=== PATIENT | male | born 1980 | race African-American/Black ===

== ENCOUNTER 2017-07-28 09:40 | Emergency (ER) | payer SELFPAY ==
[2017-07-28 10:05] VITALS: BP 131/77
--- NOTE | 2017-07-28 10:14 | ERNOTE ---
Back Pain ER HPI Date of Service: 07/28/17 Presenting Symptoms: hx chronic back pain Time Seen by Provider: 07/28/17 10:13 Source: patient, RN notes reviewed Exam Limitations: no limitations Immunizations: IMMUNIZATION HX Immunizations Up to Date Yes History of Influenza Vaccine No Hx Pneumococcal Vaccination No Allergies/Adverse Reactions: Allergies No Known Allergies Allergy (Unverified 07/28/17 10:05) Home Medications: HOME MEDICATIONS Cyclobenzaprine HCl [Flexeril] 10 mg PO TID PRN #30 tab 07/28/17 [Last Taken Unknown] Ibuprofen [Motrin] 600 mg PO Q6H PRN #40 tab 07/28/17 [Last Taken Unknown] Narrative: 37 year old male ambulatory to the ED for pain in his right hip and thigh that began gradually over the past few days. He has a history of chronic low back pain. He was seen in the ED in [place] last weekend and prescribed nabumetone and a steroid. He reports that the steroid did help his back pain a little. He also reports that an xray was done and was normal. He has not been seen here before and does not have a PCP. Timing: Reports: constant, getting worse Quality/Severity: Reports: severe, aching Location of pain: Reports: lower back, radiating to rt thigh/leg Recent Injury?: Reports: no Modifying Factors - (Improves): Reports: nothing Modifying Factors - (Worsens): Reports: supine position, cough/deep breaths Associated Symptoms: Denies: fever/chills, sweating, constipation/incontinence, nausea/vomiting, problems urinating, difficulty walking, lightheadedness, numbess/weakness in legs Prior Treament: Reports: recently seen, treated by physician, similar symptoms before Review of Systems - Review of Systems Constitutional: Absent: recent illness, fever, malaise EYE: Present: no symptoms reported ENT: Present: no symptoms reported Respiratory: Absent: shortness of breath, cough Cardiology: Absent: chest pain, palpitations, edema Gastrointestinal/Abdominal: Absent: nausea, vomiting, abdominal pain Genitourinary: Absent: dysuria, hematuria Musculoskeletal: Present: back pain. Absent: neck pain, joint pain, joint swelling Skin: Absent: rash, lesions, lumps Neurological: Absent: headache, dizziness/light-headedness, weakness, numbness, tingling Endocrine: Present: no symptoms reported Hematologic/Lymphatic: Absent: easy bruising, easy bleeding Psych: Present: anxiety, depressed - Patient's Past Medical History Patient History - Medical: Anxiety, Chronic Pain, Depression Patient History - Cardiac/Respiratory: CVA/Stroke Patient History - Cancer: No Hx of Cancer Patient History - Surgical Procedures: No surgical history Patient History - Other: None - Social History Living Situations: spouse Abuse History: No History of abuse Psych History: Hx of Anxiety, Hx of Depression Smoking Status: Current every day smoker Have you smoked in the past 12 months: Yes Do you dip or chew tobacco: No Alcohol Use: occasionally Drug Use: marijuana - Immunizations Immunizations Up to Date: Yes Hx Pneumococcal Vaccination: No History of Influenza Vaccine: No Physical Exam - Physical Exam General Appearance: Present: wd/wn, alert, no apparent distress Head Exam: Present: normal inspection Neck: Present: normal inspection, nontender, supple, full range of motion Respiratory: Present: no respiratory distress, normal breath sounds, no accessory muscle use, lungs clear Cardiovascular/Chest: Present: regular rate, rhythm, no murmur Back Exam: Present: no CVA tenderness, no vertebral tenderness, decreased range of motion - mild, lumbar region, other - bilateral lumbar region paraspinal muscle tenderness, worse on right Extremity Exam: Present: normal inspection, non-tender, normal range of motion, no edema Neurological Exam: Present: alert, oriented, normal mood/affect, no motor/ sensory deficits DTR: N=norm/NB=norm/brisk/A=abs/DD=dull/dimin/HC=hyperactive: Knee (R): Normal/ Brisk, Knee (L): Normal/Brisk Skin Exam: Present: normal color, warm/dry ED Progress - Vital Signs Patient's Vital Signs:: I have reviewed the patient's vital signs. Vital Signs: Vital Signs 07/28/17 09:58 Pulse Rate 73 Respiratory 15 Rate Blood Pressure 131/77 O2 Sat by Pulse 100 Oximetry - Progress/Reassessment Chief Complaint: Lower Extremity Pain/ Injury Progress:: Unchanged Departure Clinical Impression: Chronic low back pain Qualifiers: Back pain laterality: right Sciatica presence: with sciatica Sciatica laterality: sciatica of right side Qualified Code(s): M54.41 - Lumbago with sciatica, right side; G89.29 - Other chronic pain; G89.29 - Other chronic pain - Departure Disposition: Home Follow Up Needed Condition: Stable Instructions: Sciatica, [id number] Additional Instructions: Stop nabumetone but continue steroid Take ibuprofen with food Muscle relaxant will cause drowsiness Contact the clinic to establish with a primary care provider for further testing and treatment [phone] Prescriptions: Cyclobenzaprine HCl [Flexeril] 10 mg PO TID PRN #30 tab PRN Reason: MUSCLE SPASMS Ibuprofen [Motrin] 600 mg PO Q6H PRN #40 tab PRN Reason: Pain
[2017-07-28] MEDS ORDERED: KETOROLAC TROMETHAMINE 60 MG/2 ML VIAL IM ONE ×2 (10:30→10:33)
[2017-07-28] MEDS ORDERED: ORPHENADRINE CITRATE 30 MG/ML VIAL IM ONE (10:31)
[2017-07-28] MEDS ORDERED: ORPHENADRINE CITRATE 30 MG/ML VIAL ONE (10:33)
== END 2017-07-28 11:00 | disposition home or self-care (01) ==
LOC: ER 09:40
DX: M54.41 Lumbago with sciatica, right side (principal); G89.29 Other chronic pain; F17.200 Nicotine dependence, unspecified, uncomplicated

== ENCOUNTER 2017-09-07 14:28 | Emergency (ER) | payer MEDICAID ==
[2017-09-07] MEDS ORDERED: KETOROLAC TROMETHAMINE 60 MG/2 ML VIAL IM ONE ×2 (15:04→15:06)
--- NOTE | 2017-09-07 15:16 | ERNOTE ---
Back Pain ER HPI Date of Service: 09/07/17 Presenting Symptoms: injury/pain to back, hx chronic back pain Time Seen by Provider: 09/07/17 14:51 Source: patient Exam Limitations: no limitations Immunizations: IMMUNIZATION HX Immunizations Up to Date Yes History of Influenza Vaccine No Hx Pneumococcal Vaccination No Allergies/Adverse Reactions: Allergies No Known Allergies Allergy (Verified 09/07/17 14:42) Home Medications: HOME MEDICATIONS Cyclobenzaprine HCl [Flexeril] 10 mg PO TID PRN #30 tab 07/28/17 [Last Taken Unknown] Ibuprofen [Motrin] 600 mg PO Q6H PRN #40 tab 07/28/17 [Last Taken Unknown] Narrative: Pt is a 37 year old who presents to the ER with sciatica and lower back pain. He states he has a history of chronic lower back pain for which he takes ibuprofen and flexeril for this is usually managed quite well on this regimen. Today he made a sudden movement to catch himself when slipping, although he did not fall, and right after developed sudden back pain which shoots down the back of his right thigh. He endorses taking a flexeril and ibuprofen prior to arrival , no other associated symptoms. Movement exacerbates the pain, rest alleviates it. And also endorses this pain being similar to his last episode. Date (Duration): 09/07/17 Time (Timing): 10:00 Timing: Reports: constant Quality/Severity: Reports: moderate Location of pain: Reports: lower back, radiating to rt thigh/leg Activities at Onset: Reports: activity Recent Injury?: Reports: no Possible Precipitating Factor: Reports: fall/near fall Modifying Factors - (Improves): Reports: other - rest Modifying Factors - (Worsens): Reports: movement to right, movement to left, movement flexion Associated Symptoms: Denies: fever/chills, constipation/incontinence, nausea/ vomiting, problems urinating, difficulty walking, numbess/weakness in legs Prior Treament: Reports: treated by physician Review of Systems - Review of Systems Constitutional: Absent: recent illness, fever, chills Respiratory: Present: no symptoms reported Cardiology: Present: no symptoms reported Musculoskeletal: Present: back pain, muscle stiffness Skin: Present: no symptoms reported Neurological: Absent: weakness, numbness, tingling - Patient's Past Medical History Patient History - Medical: Anxiety, Chronic Pain, Depression Patient History - Cardiac/Respiratory: CVA/Stroke Patient History - Cancer: No Hx of Cancer Patient History - Surgical Procedures: No surgical history Patient History - Other: None - Social History Living Situations: home Abuse History: No History of abuse Psych History: Hx of Anxiety, Hx of Depression - Immunizations Immunizations Up to Date: Yes Hx Pneumococcal Vaccination: No History of Influenza Vaccine: No Physical Exam - Physical Exam General Appearance: Present: wd/wn, alert, no apparent distress Head Exam: Present: normal inspection, no evidence of injury Neck: Present: nontender, full range of motion Respiratory: Present: no respiratory distress, no accessory muscle use Cardiovascular/Chest: Present: normal peripheral pulses Back Exam: Present: normal inspection, normal range of motion, no CVA tenderness , no vertebral tenderness Extremity Exam: Present: non-tender Neurological Exam: Present: alert, oriented, normal mood/affect, no motor/ sensory deficits. Absent: motor weakness ED Progress - Vital Signs Patient's Vital Signs:: I have reviewed the patient's vital signs. Vital Signs: Vital Signs 09/07/17 14:37 Temperature 36.9 C Pulse Rate 78 Respiratory 12 Rate Blood Pressure 113/70 O2 Sat by Pulse 98 Oximetry - Progress/Reassessment Chief Complaint: Back Pain Progress:: Improved Departure Clinical Impression: Back pain with right-sided sciatica - Departure Disposition: Home Follow Up Needed Condition: Good Instructions: Back Pain, Adult, Sciatica, [id number] Additional Instructions: May use warm compress or heating pad to help alleviate pain. Continue with small stretches and exercises to help increase mobility. Please return to ER if symptoms worsen or develop loss of control of bowel or bladder or lower extremity weakness. Establish PCP for further treatment-list provided for [facility] providers Continue taking Flexeril and Ibuprofen as previous prescribed.
[2017-09-07 15:24] VITALS: BP 118/64
== END 2017-09-07 15:38 | disposition home or self-care (01) ==
LOC: ER 14:28
DX: M54.31 Sciatica, right side (principal)